=== PATIENT | female | born 1960 | race Caucasian/White ===

== ENCOUNTER 2019-06-09 06:46 | Emergency (ER) | payer BC, SELFPAY ==
[2019-06-09 06:51] VITALS: BP 159/90; PULSE 61; RESP 18; TEMP 36.4; O2SAT 99; BMI 27.9
[2019-06-09] MEDS: SODIUM CHLORIDE 0.9% 1,000 ML 1000 ML IV (07:15)
[2019-06-09 07:38] LABS: Add Manual Diff / Slide Review NO; Basophils Absolute Auto 0 /uL (0-100); Basophils Percent Auto 0.6 % (0-2); Eosinophils Absolute Auto 300 /uL (0-450); Eosinophils Percent Auto 4.3 % (2-4); Hematocrit 40.7 % (36-46); Hemoglobin 13.9 g/dL (12.0-16.0); Lymphocytes Absolute Auto 1500 /uL (1100-4500); Lymphocytes Percent Auto 22.5 % (25-40); Mean Corpuscular HGB Conc 34.1 % (30-36); Mean Corpuscular Hemoglobin 30.4 PG (26-34); Mean Corpuscular Volume 89.3 fL (80-100); Monocytes Absolute Auto 400 /uL (0-900); Monocytes Percent Auto 5.7 % (3-14); Neutrophils Absolute Auto 4300 /uL (1500-7000); Neutrophils Percent Auto 66.9 % (50-75); Platelet Count 294 X10^3/uL (150-400); Red Blood Cell Count 4.56 X10^6/uL (4.0-5.2); Red Cell Distribution Width 13.2 % (11.6-14.8); White Blood Cell Count 6.5 X10^3/uL (4.5-11.0)
[2019-06-09 07:47] LABS: Alanine Aminotransferase 32 IU/L (<35); Albumin 4.4 g/dL (3.5-5.0); Albumin Globulin Ratio 1.5 (1.0-2.8); Alkaline Phosphatase 144 U/L (38-126); Aspartate Aminotransferase 31 IU/L (14-36); Bilirubin Total 0.6 mg/dL (0.2-1.3); Blood Urea Nitrogen 14 mg/dL (7-17); Calcium 9.8 mg/dL (8.4-10.2); Carbon Dioxide 25 mmol/L (22-32); Chloride 106 mmol/L (98-107); Estimated Glomerular Filt Rate > 60.0 mL/min (>60); Glucose 90 mg/dL (80-110); HEMOLYSIS < 15 (0-50); Lipase 64 U/L (23-300); Potassium 3.9 mmol/L (3.4-5.1); Sodium 140 mmol/L (137-145); Total Protein 7.4 g/dL (6.3-8.2)
--- NOTE | 2019-06-09 08:08 | ED.ABDPAIN ---
HPI - Abdominal Pain General Chief Complaint: Abdominal Pain Stated Complaint: nausea/vomiting, left side pain Time Seen by Provider: 06/09/19 06:51 Source: patient Mode of arrival: Ambulatory Limitations: no limitations History of Present Illness HPI narrative: Patient comes emergency department complaining of left upper quadrant flank pain that started this morning. She states that when the pain gets bad, she starts get nauseated, too. Patient states she had a little coffee and Cheerios after waking up and that this seemed to make the pain worse. She denies sick contacts. She states she is otherwise healthy. No history of ulcers. No diarrhea, dysuria, fevers, cough, chest pain, shortness of breath, or right-sided pain. she states the pain comes in waves and that it is not too bad right now. She denies any history of kidney stones. No other complaints at this time. Related Data Home Medications Medication Instructions Recorded Confirmed [CALCIUM] PO QDAY #0 08/01/17 acetaminophen 325 mg PO Q4HP PRN #0 08/01/17 aspirin 325 mg PO PRN PRN #0 08/01/17 cholecalciferol (vitamin D3) PO QDAY #0 08/01/17 [Vitamin D3] multivitamin [Multiple Vitamins] 1 tab PO QDAY #0 08/01/17 Previous Rx's Medication Instructions Recorded tramadol 50 mg PO Q6HP PRN #14 tab 08/01/17 ondansetron 4 mg PO Q6H PRN #10 tab 06/09/19 Allergies Allergy/AdvReac Type Severity Reaction Status Date / Time Penicillins [PENICILLINS] Allergy Intermediate RASH Verified 06/09/19 08:08 amoxicillin [AMOXICILLIN] Allergy Mild rash Verified 06/09/19 08:08 Review of Systems Constitutional Constitutional: Denies chills, Denies fatigue, Denies fever(s), Denies frequent falls, Denies lethargy and Denies weakness Eyes Eyes: Denies change in vision, Denies eye discharge, Denies irritation and Denies loss of vision ENT Ears, Nose, Mouth, and Throat: Denies change in voice, Denies dizziness, Denies neck pain, Denies sore throat and Denies throat swelling Cardiovascular Cardiovascular: Denies chest pain, Denies irregular heart rhythm, Denies lightheadedness, Denies palpitations, Denies dyspnea, Denies dyspnea on exertion and Denies orthopnea Respiratory Respiratory: Denies cough, Denies dyspnea, Denies dyspnea on exertion and Denies wheezing Gastrointestinal Gastrointestinal: Reports abdominal pain, Denies change in bowel habits, Denies diarrhea, Reports nausea and Reports vomiting Genitourinary Genitourinary: Denies hematuria, Reports flank pain, Denies urinary incontinence and Denies urinary urgency Musculoskeletal Musculoskeletal: Denies back pain, Denies muscle weakness, Denies neck pain, Denies numbness and Denies tingling Integumentary/Breasts Skin/Breast: Denies pruritus, Denies erythema, Denies rash and Denies wounds Neurologic Neurologic: Denies behavioral changes, Denies confusion, Denies dizziness, Denies frequent falls, Denies loss of vision, Denies numbness, Denies tingling and Denies weakness Psychiatric Psychiatric: Denies anxiety, Denies behavioral changes, Denies confusion, Denies depression, Denies homicidal ideation and Denies suicidal ideation Endocrine Endocrine: Denies fatigue, Denies flushing and Denies palpitations Hematologic/Lymphatic Hematologic/Lymphatic: Denies easy bruising Allergic/Immunologic Allergic/Immunologic: Denies urticaria, Denies throat swelling and Denies wheezing Patient History Medical History Hepatitis (Acute) Surgical History H/O tubal ligation (Acute) Social History Smoking Status: Never smoker alcohol intake frequency: 0-2 drinks per day Substance Use Type: does not use Exam Initial Vital Signs Initial Vital Signs: Vital Signs Temperature 97.6 F 06/09/19 06:51 Pulse Rate 61 06/09/19 06:51 Respiratory Rate 18 06/09/19 06:51 Blood Pressure 159/90 H 06/09/19 06:51 Pulse Oximetry 99 06/09/19 06:51 Const General: cooperative and well developed Nutritional Appearance: well nourished Orientation: alert, awake, oriented x3 and not confused [facility] Head: normocephalic and atraumatic Ears: external ears normal Nose: external nose normal and No nasal discharge Face and sinus: face symmetric and No dry mucous membranes Mouth: oral mucosae normal and moist mucous membranes Teeth and gingiva: dentition normal Eyes General: appearance normal, both eyes and all related structures Eyelids: eyelids normal Conjunctivae: conjunctivae normal Sclera: sclerae normal Pupils: PERRL EOM: EOM intact bilaterally Neck Neck: normal visual inspection, trachea midline, No lymphadenopathy, No midline deformity and No JVD Lymphatic: No lymphedema Chest Chest: normal inspection of the chest Resp Effort & Inspection: normal respiratory effort, able to speak in complete sentences, no respiratory distress and no use of accessory muscles Auscultation: clear to auscultation bilaterally, no rales, no rhonchi and no wheezes Cardio Rate: regular rate Rhythm: regular rhythm Heart Sounds: no click, no gallops, no murmurs and no rubs Pulses: normal peripheral pulses GI Inspection: non-distended Palpation: soft, no hepatosplenomegaly, No guarding, No pulsatile mass and tender (Mild, left upper quadrant) Auscultation: normal bowel sounds Back/Spine/Pelvis Back: CVA tenderness left (Mild) Cervical Spine: cervical ROM normal and No pain with cervical ROM Thoracic/Lumbar Spine: thoracic and lumbar spine normal to inspection Skin General: no rashes or lesions noted, No jaundice and No petechiae Neuro General: alert, oriented x3, gait normal and no focal motor deficits Speech: speech normal Extrem General: full ROM, no clubbing, cyanosis or edema, no pedal edema and no calf tenderness Psych Appearance: well kempt Mental Status: mental status grossly normal Attitude: cooperative Thought Content: normal and suicidality Judgment: judgment good Course Course Course Narrative: Patient was given IV fluids in the emergency department. She declined analgesia or antiemetics initially, because she did not have significant symptoms in this regard at that time. Patient was worked up with labs, urinalysis, and CT KUB, all of which were unremarkable. I discussed this with the patient, who still was feeling better. I feel that most likely, the patient has a viral infection, which I have discussed with her will be self-limited. We have discussed home management of symptoms, as well as the usual indications for return. Orders Ordered: Discontinued Medications Sodium Chloride (Normal Saline 0.9%) 1,000 mls @ 1,000 mls/hr IV BOLUS ONE Stop: 06/09/19 07:50 Last Infusion: 06/09/19 08:25 Dose: 0 mls/hr Documented by: Admin: 06/09/19 07:15 Dose: 1,000 mls/hr Documented by: SCANAPO Vital Signs Vital signs: Vital Signs - 8 hr 06/09/19 06:51 Temperature 97.6 F Pulse Rate 61 Respiratory Rate 18 Blood Pressure 159/90 H Pulse Oximetry 99 MDM - Abdominal Pain Medical Records Attestation: I reviewed the patient's medical records. Lab Data Attestation: I reviewed the patient's lab results. Result diagrams: 06/09/19 07:20 06/09/19 07:20 Labs: Lab Results 06/09/19 06/09/19 06/09/19 Range/Units 07:20 07:20 09:23 WBC 6.5 (4.5-11.0) X10^3/uL RBC 4.56 (4.0-5.2) X10^6/uL Hgb 13.9 (12.0-16.0) g/dL Hct 40.7 (36-46) % MCV 89.3 (80-100) fL MCH 30.4 (26-34) PG MCHC 34.1 (30-36) % RDW 13.2 (11.6-14.8) % Plt Count 294 (150-400) X10^3/uL Neut % (Auto) 66.9 (50-75) % Lymph % (Auto) 22.5 L (25-40) % [place] % (Auto) 5.7 (3-14) % Eos % (Auto) 4.3 H (2-4) % Baso % (Auto) 0.6 (0-2) % Neut # (Auto) 4300 (4041-5407) /uL Lymph # (Auto) 1500 (3478-4335) /uL [place] # (Auto) 400 (0-900) /uL Eos # (Auto) 300 (0-450) /uL Baso # (Auto) 0 (0-100) /uL Sodium 140 (137-145) mmol/L Potassium 3.9 (3.4-5.1) mmol/L Chloride 106 (98-107) mmol/L Carbon Dioxide 25 (22-32) mmol/L BUN 14 (7-17) mg/dL Creatinine 0.70 (0.52-1.04) mg/dL Estimated GFR > 60.0 (>60) mL/min BUN/Creatinine Ratio 20.0 (6-22) Glucose 90 (80-110) mg/dL Calcium 9.8 (8.4-10.2) mg/dL Total Bilirubin 0.6 (0.2-1.3) mg/dL AST 31 (14-36) IU/L ALT 32 (<35) IU/L Alkaline Phosphatase 144 H (38-126) U/L Troponin I < 0.012 (0.01-0.034) ng/mL Total Protein 7.4 (6.3-8.2) g/dL Albumin 4.4 (3.5-5.0) g/dL Globulin 3.0 (1.7-4.1) g/dL Albumin/Globulin Ratio 1.5 (1.0-2.8) Lipase 64 (23-300) U/L Urine Color Yellow Urine Appearance Sl cloudy Urine pH 7.5 (4.5-8.0) Ur Specific [place] 1.010 (1.000-1.035) Urine Protein Negative (Negative) Urine Glucose (UA) Negative (Negative) g/dL Urine Ketones Negative (NEGATIVE) Urine Occult Blood Negative (Negative) Urine Nitrate Negative (Negative) Urine Bilirubin Negative (NEGATIVE) Urine Urobilinogen 0.2 (0.2) E.U./dL Ur Leukocyte Esterase Negative (NEGATIVE) Urine RBC None seen (0-5/HPF) Urine WBC 0-1/hpf (0-5/HPF) Ur Squamous Epith Cells 1-5 /hpf (0-5/HPF) Amorphous Sediment 3+ Urine Bacteria Many (>30) H (None) Ur Culture Indicated? Cult not indicated Imaging Data CT scan - abdomen: Radiologist's impression: PROCEDURE: CT KIDNEY URETER BLADDER (KUB) INDICATIONS: Left flank pain, nausea TECHNIQUE: Noncontrast 5 mm thick sections acquired from the diaphragms to the symphysis. 5 mm thick coronal and sagittal reformats were then performed. For radiation dose reduction, the following was used: automated exposure control, adjustment of mA and/or kV according to patient size. COMPARISON: [facility], , ABDOMEN LIMITED, 08/01/2017, 10:08. FINDINGS: Image quality: Excellent. Lung bases: There is mild dependent atelectasis. There is a focus of nodular pleural thickening along the right hemidiaphragm measuring up to 0.8 cm. Heart size is normal. There is a small inferior pericardial effusion. Urinary system: No kidney stones, hydronephrosis or perinephric fat stranding. Multiple bilateral renal cysts are demonstrated including large exophytic cysts measuring up to 5.3 cm on the right and 5.0 cm on the left. There are a few small foci of eccentric cyst wall calcifications in the left kidney. In addition, there are 2 small exophytic hyperdense foci extending posteriorly from the left kidney measuring up to 0.5 cm compatible with cortical calcifications. Both ureters appear non-dilated throughout their expected courses. Bladder wall thickness is normal; no calcified bladder stones. Other solid organs: Noncontrast evaluation of the liver demonstrates no focal hepatic lesions. The gallbladder is within normal limits without mass effect gallstones. Pancreas is normal in contours. Spleen is normal in size. No adrenal nodules. Peritoneum and bowel: Unenhanced bowel loops demonstrate normal wall thickness and caliber. The appendix is normal in appearance. There is colonic diverticulosis without acute diverticulitis. No free fluid or air. Nodes and vessels: No retroperitoneal or mesenteric adenopathy by size criteria. Aorta and inferior vena cava are normal in caliber. Abdominal wall: No ventral hernias. Pelvis: No free pelvic fluid. No inguinal hernias or adenopathy. Bones: No suspicious bony lesions. No vertebral body compression fractures. IMPRESSION: 1. No hydronephrosis or nephrolithiasis. 2. Multiple bilateral renal cysts including mildly complex cysts in the left kidney demonstrating eccentric wall calcifications. 3. 2 small hyperdense exophytic foci extending posteriorly from the left kidney suggestive of cortical calcifications. The findings are nonspecific and may reflect dystrophic calcifications or sequelae of hemorrhagic cysts. 4. Nodular thickening along the right hemidiaphragm. If patient is at high risk for malignancy, a followup CT may be performed in 12 months to demonstrate stability. 5. Small inferior pericardial effusion. 6. Mild colonic diverticulosis without acute diverticulitis. Dictated by: Sha Griffin M.D. on 06/09/2019 at 8:29 Approved by: Sha Griffin M.D. on 06/09/2019 at 8:38 Discharge Plan Departure Patient Disposition: Home Clinical Impression: Viral gastritis Discharge Date/Time: 06/09/19 10:30 Instructions: DI for Viral Gastroenteritis -- Adult, DI for Abdominal Pain-Adult Activity Restrictions/Additional Instructions: Your labs and urinalysis look good. Your CT scan shows no evidence of a kidney stone or findings that would contribute to your symptoms today. You do have a few cysts on your kidneys, but generally, these do not cause symptoms. You most likely have one of the many viral illnesses that are going around right now and causing nausea and vomiting. This can also cause spasm of the stomach itself, which can account for the pain you been having. Please take the nausea medication, as needed. Prescriptions: New ondansetron 4 mg tablet,disintegrating 4 mg PO Q6H PRN (Reason: nausea and vomiting) Qty: 10 RF: 0 No Action acetaminophen 325 MG tablet 325 mg PO Q4HP PRNQty: 0 RF: 0 aspirin 325 MG tablet 325 mg PO PRN PRNQty: 0 RF: 0 multivitamin [Multiple Vitamins] 1 EACH tablet 1 tab PO QDAY Qty: 0 RF: 0 cholecalciferol (vitamin D3) [Vitamin D3] 2,000 unit capsule PO QDAY Qty: 0 RF: 0 [CALCIUM] PO QDAY Qty: 0 RF: 0 tramadol 50 MG tablet 50 mg PO Q6HP PRNQty: 14 RF: 0 Referrals: [facility] [Provider Group]
[2019-06-09 08:12] LABS: Troponin I < 0.012 ng/mL (0.01-0.034)
--- NOTE | 2019-06-09 08:18 | DI.CT.S_ITS ---
PROCEDURE: CT KIDNEY URETER BLADDER (KUB) INDICATIONS: Left flank pain, nausea TECHNIQUE: Noncontrast 5 mm thick sections acquired from the diaphragms to the symphysis. 5 mm thick coronal and sagittal reformats were then performed. For radiation dose reduction, the following was used: automated exposure control, adjustment of mA and/or kV according to patient size. COMPARISON: [facility], , ABDOMEN LIMITED, 08/01/2017, 10:08. FINDINGS: Image quality: Excellent. Lung bases: There is mild dependent atelectasis. There is a focus of nodular pleural thickening along the right hemidiaphragm measuring up to 0.8 cm. Heart size is normal. There is a small inferior pericardial effusion. Urinary system: No kidney stones, hydronephrosis or perinephric fat stranding. Multiple bilateral renal cysts are demonstrated including large exophytic cysts measuring up to 5.3 cm on the right and 5.0 cm on the left. There are a few small foci of eccentric cyst wall calcifications in the left kidney. In addition, there are 2 small exophytic hyperdense foci extending posteriorly from the left kidney measuring up to 0.5 cm compatible with cortical calcifications. Both ureters appear non-dilated throughout their expected courses. Bladder wall thickness is normal; no calcified bladder stones. Other solid organs: Noncontrast evaluation of the liver demonstrates no focal hepatic lesions. The gallbladder is within normal limits without mass effect gallstones. Pancreas is normal in contours. Spleen is normal in size. No adrenal nodules. Peritoneum and bowel: Unenhanced bowel loops demonstrate normal wall thickness and caliber. The appendix is normal in appearance. There is colonic diverticulosis without acute diverticulitis. No free fluid or air. Nodes and vessels: No retroperitoneal or mesenteric adenopathy by size criteria. Aorta and inferior vena cava are normal in caliber. Abdominal wall: No ventral hernias. Pelvis: No free pelvic fluid. No inguinal hernias or adenopathy. Bones: No suspicious bony lesions. No vertebral body compression fractures. IMPRESSION: 1. No hydronephrosis or nephrolithiasis. 2. Multiple bilateral renal cysts including mildly complex cysts in the left kidney demonstrating eccentric wall calcifications. 3. 2 small hyperdense exophytic foci extending posteriorly from the left kidney suggestive of cortical calcifications. The findings are nonspecific and may reflect dystrophic calcifications or sequelae of hemorrhagic cysts. 4. Nodular thickening along the right hemidiaphragm. If patient is at high risk for malignancy, a followup CT may be performed in 12 months to demonstrate stability. 5. Small inferior pericardial effusion. 6. Mild colonic diverticulosis without acute diverticulitis. Dictated by: Sha Griffin M.D. on 06/09/2019 at 8:29 Approved by: Sha Griffin M.D. on 06/09/2019 at 8:38
[2019-06-09 09:26] VITALS: BP 149/79; PULSE 57; RESP 14; O2SAT 100
[2019-06-09 09:26] LABS: RBC Urine None Seen (0-5/HPF)
[2019-06-09 09:28] LABS: Appearance Urine UA SL CLOUDY; Bilirubin Urine UA NEGATIVE (NEGATIVE); Color Urine UA YELLOW; Glucose Urine UA NEGATIVE (Negative); Ketones Urine UA NEGATIVE (NEGATIVE); Leukocyte Esterase Urine UA NEGATIVE (NEGATIVE); Nitrite Urine UA NEGATIVE (Negative); Occult Blood Urine UA NEGATIVE (Negative); Protein Urine UA NEGATIVE (Negative); Urobilinogen Urine UA 0.2 E.U./dL (0.2)
[2019-06-09 09:44] LABS: pH Urine UA 7.5 (4.5-8.0)
[2019-06-09 09:45] LABS: Amorphous Sediment Urine 3+; Bacteria Urine Many (>30); Culture Indicated Urine Cult Not Indicated; Squamous Epithelial Cell Urine 1-5 /HPF (0-5/HPF); WBC Urine 0-1/HPF (0-5/HPF)
== END 2019-06-09 10:30 | disposition home or self-care (01) ==
PROVIDERS: Emergency Medicine; Emergency Provider Emergency Medicine
DX: K29.70 Gastritis, unspecified, without bleeding (principal)
CPT/HCPCS: 36415; 74176; 80053; 81001; 83690; 84484; 85025; 93005; 96360; 99283; 99285

== ENCOUNTER 2020-10-13 16:50 | Emergency (ER) | payer OTHER, SELFPAY ==
[2020-10-13 16:59] VITALS: BP 180/81; PULSE 62; RESP 18; TEMP 36.4; O2SAT 100
[2020-10-13] MEDS: ONDANSETRON 4 MG ODT PO (17:45)
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
--- NOTE | 2020-10-13 18:55 | PC.NURSE ---
pt complaining of nausea.
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
[2020-10-13] MEDS: ONDANSETRON 4 MG ODT PREPACK 1 BOTTLE MISC (20:58)
[2020-10-13 21:05] VITALS: BP 132/84; PULSE 47; RESP 22; O2SAT 97
--- NOTE | 2020-10-14 12:21 | PC.NURSE ---
pt called stating her work note was not in the packet. discussed with dr bradshaw. 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
== END 2020-10-13 21:04 | disposition home or self-care (01) ==
PROVIDERS: Emergency Provider Emergency Medicine
DX: S06.0X0A Concussion without loss of consciousness, initial encounter (principal); V49.40XA Driver injured in collision with unspecified motor vehicles in traffic accident, initial encounter
CPT/HCPCS: 70450; 72125; 99283; 99284

== ENCOUNTER 2021-02-02 15:46 | Emergency (ER) | payer OTHER, SELFPAY ==
[2021-02-02] VITALS (9 sets, daily range): BP systolic 149–190; BP diastolic 76–91; PULSE 57–77; RESP 14–16; TEMP 36.8; O2SAT 96–100; BMI 24.5
[2021-02-02 16:21] LABS: Add Manual Diff / Slide Review NO; Basophils Absolute Auto 100 /uL (0-100); Basophils Percent Auto 1.4 % (0-2); Eosinophils Absolute Auto 200 /uL (0-450); Eosinophils Percent Auto 3.4 % (2-4); Hematocrit 39.7 % (36-46); Hemoglobin 13.2 g/dL (12.0-16.0); Lymphocytes Absolute Auto 1500 /uL (1100-4500); Lymphocytes Percent Auto 25.6 % (25-40); Mean Corpuscular HGB Conc 33.3 % (30-36); Mean Corpuscular Volume 90.1 fL (80-100); Monocytes Absolute Auto 400 /uL (0-900); Monocytes Percent Auto 5.9 % (3-14); Neutrophils Absolute Auto 3800 /uL (1500-7000); Neutrophils Percent Auto 63.7 % (50-75); Platelet Count 227 X10^3/uL (150-400); Red Blood Cell Count 4.41 X10^6/uL (4.0-5.2); Red Cell Distribution Width 13.7 % (11.6-14.8); White Blood Cell Count 5.9 X10^3/uL (4.5-11.0)
[2021-02-02 16:31] LABS: Alanine Aminotransferase 39 IU/L (<35); Albumin 4.2 g/dL (3.5-5.0); Albumin Globulin Ratio 1.5 (1.0-2.8); Alkaline Phosphatase 93 U/L (38-126); Aspartate Aminotransferase 36 IU/L (14-36); BUN Creatinine Ratio 17.1 (6-22); Bilirubin Total 0.4 mg/dL (0.2-1.3); Blood Urea Nitrogen 14 mg/dL (7-17); Calcium 9.5 mg/dL (8.4-10.2); Carbon Dioxide 28 mmol/L (22-32); Chloride 104 mmol/L (98-107); Estimated Glomerular Filt Rate > 60.0 mL/min (>60); Globulin 2.8 g/dL (1.7-4.1); Glucose 104 mg/dL (80-110); HEMOLYSIS < 15 (0-50); Lipase 70 U/L (23-300); Sodium 138 mmol/L (137-145)
--- NOTE | 2021-02-02 16:39 | PC.NURSE ---
Denies UTI symptoms
[2021-02-02] MEDS: ONDANSETRON 4 MG/2 ML INJ IV (16:43)
[2021-02-02] MEDS: KETOROLAC 30 MG/ML VIAL IV (16:43)
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
--- NOTE | 2021-02-02 18:25 | DI.CT.S_ITS ---
PROCEDURE: CT KIDNEY URETER BLADDER (KUB) INDICATIONS: right flank/side pain, sudden onset, n/v TECHNIQUE: Axial sections were acquired from the lung bases to the pubic symphysis. Coronal and sagittal reformats were performed. For radiation dose reduction, the following was used: automated exposure control, adjustment of mA and/or kV according to patient size. COMPARISON:Formerly [facility], CT, CT KIDNEY URETER BLADDER (KUB), 06/09/2019, 8:12. FINDINGS: Image quality: Excellent. Lung bases: Unremarkable. Heart: Small pericardial effusion, chronic. Stable heart size. URINARY: Right Kidney: No stones or hydronephrosis. Several exophytic cysts are present. No perinephric inflammation. Right Ureter: No hydroureter. Left Kidney: No stones or hydronephrosis. Tiny chronic hyperdense cyst along the inferior pole. Several exophytic cysts are present elsewhere. There is trace hyperdensity along one of the superior pole cysts, chronic. Left Ureter: No hydroureter. Bladder: Normal wall thickness. No stones. ABDOMEN: Liver: Unremarkable. Gallbladder: Unremarkable. Biliary ducts: Unremarkable. Pancreas: Unremarkable. Spleen: Unremarkable. Adrenal Glands: Unremarkable. Stomach and Bowel: Stomach, small bowel loops, and colon are unremarkable. Normal appendix is seen. Peritoneum: No abnormal intraperitoneal fluid. No free air. Ventral Wall: No hernia. Abdominal Nodes: No enlarged retroperitoneal or mesenteric lymph nodes. Vessels: Aorta and inferior vena cava are normal in size. PELVIS: Pelvic Organs: Unremarkable. Pelvic Nodes: Unremarkable. Miscellaneous: No inguinal hernias are seen. Bones: Superior endplate scalloping of multiple lower thoracic and lumbar vertebral bodies, most extensive at L5, similar compared to prior. IMPRESSION: 1. No evidence of urinary stones or obstructive uropathy. 2. Several exophytic renal cysts bilaterally. 3. Normal appendix. 4. Multiple chronic appearing osteoporotic compression fractures. Dictated by: Yamileth Alston M.D. on 02/02/2021 at 18:59 Approved by: Yamileth Alston M.D. on 02/02/2021 at 19:14
== END 2021-02-02 20:01 | disposition home or self-care (01) ==
PROVIDERS: Emergency Medicine; Emergency Provider Emergency Medicine; PCP Family Medicine
DX: M48.56XA Collapsed vertebra, not elsewhere classified, lumbar region, initial encounter for fracture (principal); R11.2 Nausea with vomiting, unspecified; R42 Dizziness and giddiness
CPT/HCPCS: 74176; 80053; 81003; 83690; 85025; 96374; 96375; 99284; J1885; J2405

== ENCOUNTER 2021-07-20 10:53 | Emergency (ER) | payer OTHER, SELFPAY ==
[2021-07-20 11:14] VITALS: BP 188/105; PULSE 65; RESP 16; TEMP 35.9; O2SAT 99; BMI 25.7
--- NOTE | 2021-07-20 11:17 | DI.RAD.S_ITS ---
PROCEDURE: XR CHEST 1V INDICATIONS: chest pain TECHNIQUE: One view of the chest was acquired. COMPARISON: None. FINDINGS: Surgical changes and devices: None. Lungs and pleura: Lungs are clear. No pleural effusions or pneumothorax. Mediastinum: Mediastinal contours appear normal. Heart size is normal. Bones and chest wall: No suspicious bony lesions. Overlying soft tissues appear unremarkable. IMPRESSION: No acute cardiopulmonary pathology. Dictated by: Warren Garcia M.D. on 07/20/2021 at 11:45 Approved by: Warren Garcia M.D. on 07/20/2021 at 11:45
--- NOTE | 2021-07-20 12:03 | ED.CHESTPAIN ---
HPI - Chest Pain General Chief Complaint: Chest Pain Stated Complaint: Heart palps Time Seen by Provider: 07/20/21 12:03 Source: patient Mode of arrival: Ambulatory Limitations: no limitations Related Data Previous Rx's Medication Instructions Recorded meloxicam 7.5 mg tablet (Mobic) 7.5 mg PO BID PRN #14 tab 02/02/21 ondansetron 4 mg disintegrating 4 mg PO Q6H PRN #5 tab 02/02/21 tablet Allergies Allergy/AdvReac Type Severity Reaction Status Date / Time Penicillins [PENICILLINS] Allergy Intermediate RASH Verified 02/02/21 16:34 amoxicillin [AMOXICILLIN] Allergy Mild rash Verified 02/02/21 16:34 Patient History Medical History Hepatitis Surgical History H/O tubal ligation Social History Smoking Status: Never smoker Smoking Status: Never smoker alcohol intake frequency: 0-2 drinks per day Substance Use Type: does not use Exam Initial Vital Signs Initial Vital Signs: Vital Signs Temperature 96.6 F L 07/20/21 11:14 Pulse Rate 65 07/20/21 11:14 Respiratory Rate 16 07/20/21 11:14 Blood Pressure 188/105 H 07/20/21 11:14 Pulse Oximetry 99 07/20/21 11:14 Course Orders Ordered: ED Orders 07/20/21 11:17 XR chest 1V Stat Complete Blood Count AUTO DIFF Stat Comprehensive Metabolic Panel Stat Lipase Stat Magnesium Stat Troponin & CK Cardiac Panel Stat 07/20/21 11:22 EKG-12 Lead Stat Vital Signs Vital signs: Vital Signs - 8 hr 07/20/21 11:14 Temperature 96.6 F L Pulse Rate 65 Respiratory Rate 16 Blood Pressure 188/105 H Pulse Oximetry 99 MDM - Chest Pain Lab Data Result diagrams: 07/20/21 12:03 07/20/21 12:03 Labs: Lab Results 07/20/21 07/20/21 07/20/21 Range/Units 12:03 12:03 12:05 WBC 7.4 (4.5-11.0) X10^3/uL RBC 4.99 (4.0-5.2) X10^6/uL Hgb 14.8 (12.0-16.0) g/dL Hct 43.9 (36-46) % MCV 87.9 (80-100) fL MCH 29.6 (26-34) PG MCHC 33.7 (30-36) % RDW 13.4 (11.6-14.8) % Plt Count 317 (150-400) X10^3/uL Neut % (Auto) 71.8 (50-75) % Lymph % (Auto) 20.5 L (25-40) % [place] % (Auto) 4.5 (3-14) % Eos % (Auto) 2.4 (2-4) % Baso % (Auto) 0.8 (0-2) % Neut # (Auto) 5300 (9570-9573) /uL Lymph # (Auto) 1500 (5409-4415) /uL [place] # (Auto) 300 (0-900) /uL Eos # (Auto) 200 (0-450) /uL Baso # (Auto) 100 (0-100) /uL Sodium 137 (137-145) mmol/L Potassium 3.8 (3.4-5.1) mmol/L Chloride 100 (98-107) mmol/L Carbon Dioxide 32 (22-32) mmol/L BUN 14 (7-17) mg/dL Creatinine 0.83 (0.52-1.04) mg/dL Estimated GFR > 60.0 (>60) mL/min BUN/Creatinine Ratio 16.9 (6-22) Glucose 94 (80-110) mg/dL Calcium 10.0 (8.4-10.2) mg/dL Magnesium 2.0 (1.6-2.3) mg/dL Total Bilirubin 0.7 (0.2-1.3) mg/dL AST 37 H (14-36) IU/L ALT 41 H (<35) IU/L Alkaline Phosphatase 147 H (38-126) U/L Total Creatine Kinase 178 H (30-135) U/L CK-MB (CK-2) 1.87 (<2.37) ng/mL CK-MB (CK-2) Rel Index 1.1 L (1.5-5.0) % Troponin I < 0.012 (0.01-0.034) ng/mL Total Protein 8.8 H (6.3-8.2) g/dL Albumin 4.9 (3.5-5.0) g/dL Globulin 3.9 (1.7-4.1) g/dL Albumin/Globulin Ratio 1.3 (1.0-2.8) Lipase 55 (23-300) U/L TSH 1.82 (0.47-4.68) uIU/mL SARS-CoV-2 (PCR) (Negative) 07/20/21 Range/Units 14:20 WBC (4.5-11.0) X10^3/uL RBC (4.0-5.2) X10^6/uL Hgb (12.0-16.0) g/dL Hct (36-46) % MCV (80-100) fL MCH (26-34) PG MCHC (30-36) % RDW (11.6-14.8) % Plt Count (150-400) X10^3/uL Neut % (Auto) (50-75) % Lymph % (Auto) (25-40) % [place] % (Auto) (3-14) % Eos % (Auto) (2-4) % Baso % (Auto) (0-2) % Neut # (Auto) (7809-4830) /uL Lymph # (Auto) (7265-4665) /uL [place] # (Auto) (0-900) /uL Eos # (Auto) (0-450) /uL Baso # (Auto) (0-100) /uL Sodium (137-145) mmol/L Potassium (3.4-5.1) mmol/L Chloride (98-107) mmol/L Carbon Dioxide (22-32) mmol/L BUN (7-17) mg/dL Creatinine (0.52-1.04) mg/dL Estimated GFR (>60) mL/min BUN/Creatinine Ratio (6-22) Glucose (80-110) mg/dL Calcium (8.4-10.2) mg/dL Magnesium (1.6-2.3) mg/dL Total Bilirubin (0.2-1.3) mg/dL AST (14-36) IU/L ALT (<35) IU/L Alkaline Phosphatase (38-126) U/L Total Creatine Kinase (30-135) U/L CK-MB (CK-2) (<2.37) ng/mL CK-MB (CK-2) Rel Index (1.5-5.0) % Troponin I (0.01-0.034) ng/mL Total Protein (6.3-8.2) g/dL Albumin (3.5-5.0) g/dL Globulin (1.7-4.1) g/dL Albumin/Globulin Ratio (1.0-2.8) Lipase (23-300) U/L TSH (0.47-4.68) uIU/mL SARS-CoV-2 (PCR) Negative (Negative) Discharge Plan Departure Patient Disposition: Home Clinical Impression: Gallbladder polyp, Renal cyst, Epigastric abdominal pain Instructions: DI for Gastroesophageal Reflux Disease (GERD), DI for Epigastric Pain Activity Restrictions/Additional Instructions: *You have been diagnosed with epigastric pain which is unclear in etiology. Your liver enzymes are elevated but they are stable compared with prior levels. This does not appear to be cardiac in nature. Your workup is reassuring that this is not a dangerous cause for your symptoms. It most certainly could be a viral syndrome, and if so, please get enough rest, use Tylenol as needed for your symptoms, stay hydrated, and hope that your COVID test is negative. Thank you for trusting us with your care, I have sent your chart over to Dr. Ricks so she can follow up with you. Please make an appointment with her for follow-up in the next week. *What to do: *Please continue to take your regular medications as directed. [ ] New medication prescriptions sent to your pharmacy: [ ] [ ] New medication written as a paper prescription [ x] No new medications given *Please follow up with your primary care provider in 2-3 days, call for an appointment. Let them know you were seen in the Emergency Department and that we ask that you be seen in follow up. We will electronically transmit a record of today's note if your PCP is in our system *If you do not have a primary care provider please contact the [facility] Resource line at [phone]. They will ask some questions about your medical history and help get you set up with a doctor in the community. *Return to Emergency Department if you should have any new, worsening or concerning symptoms, such as [fever greater than 101F, chills, worsening pain, persistent vomiting or other bothersome symptoms] Prescriptions: No Action meloxicam [Mobic] 7.5 mg tablet 7.5 mg PO BID PRN (Reason: pain) Qty: 14 0RF ondansetron 4 mg tablet,disintegrating 4 mg PO Q6H PRN (Reason: nausea and vomiting) Qty: 5 0RF Referrals: Bridgette Ricks DO [Primary Care Provider] - Tremayne Bolton MD [Physician] - 10-14 days (for gallbladder polyp, if worsening)
--- NOTE | 2021-07-20 12:13 | ED.CHESTPAIN ---
HPI - Chest Pain <JACOB Harris - Last Filed: 07/20/21 20:15> General Chief Complaint: Chest Pain Stated Complaint: Heart palps Time Seen by Provider: 07/20/21 12:03 Source: patient Mode of arrival: Ambulatory Limitations: no limitations History of Present Illness HPI narrative: 61-year-old female presents to the emergency department for abrupt onset of epigastric pain starting at 3:40 a.m. this morning. 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 she became so nauseated she did not continue working and came to the emergency department after going to the [facility] walk-in clinic and having a EKG which was read normal completed. They recommended she come to the emergency department for follow-up. Patient reports that her pain has been accompanied by palpitations and a feeling of ?tightness ?and ?fuzziness? in her chest. She reports that her pain is relieved by belching, she denies any recent illness, fever, shortness of breath, difficulty breathing, rhinorrhea, diarrhea or vomiting. Patient reports that her brother and her sister were diagnosed with thyroid cancer. Patient reports that her family physician is Dr. Ricks at [facility] and she normally has yearly labs completed without any medical history that she knows of. Patient does not take any daily medications, she denies any recent greasy food and reports that she is back on weight watchers for the new year. She also reports that she has episodes palpitations in the past 6 months where she feels like her heart rate is abnormal but not racing. She denies feeling faint or dizzy during these episodes or ever having syncope. Patient reports that she still has all of her solid organs and has never had this type of epigastric pain before. Related Data Previous Rx's Medication Instructions Recorded meloxicam 7.5 mg tablet (Mobic) 7.5 mg PO BID PRN #14 tab 02/02/21 ondansetron 4 mg disintegrating 4 mg PO Q6H PRN #5 tab 02/02/21 tablet Allergies Allergy/AdvReac Type Severity Reaction Status Date / Time Penicillins [PENICILLINS] Allergy Intermediate RASH Verified 02/02/21 16:34 amoxicillin [AMOXICILLIN] Allergy Mild rash Verified 02/02/21 16:34 Review of Systems <JACOB Harris - Last Filed: 07/20/21 20:15> Review of Systems Narrative: General: denies fever, chills Head/Neck: denies headache, neck pain Eyes: denies visual changes, eye pain Cardio: denies chest pain, endorses feeling palpitations this morning but no longer, endorses having epigastric pain relieved by belching Respiratory: denies shortness of breath, cough GI: Endorses upper abdominal pain and nausea, denies vomiting, or diarrhea : denies dysuria, hematuria MSK: denies joint pain, muscle weakness Skin: denies rash, itching Neuro: denies numbness, tingling Patient History <JACOB Harris - Last Filed: 07/20/21 20:15> Medical History Hepatitis Surgical History H/O tubal ligation Social History Smoking Status: Never smoker Smoking Status: Never smoker alcohol intake frequency: 0-2 drinks per day Substance Use Type: does not use Exam <JACOB Harris - Last Filed: 07/20/21 20:15> Narrative Exam Narrative: Independently reviewed vitals signs and nursing notes. General: Awake, alert, nontoxic, no cardiorespiratory distress Head/Neck: Atraumatic, neck full range of motion Eyes: EOMI, conjunctiva normal Nose: nares patent, no rhinorrhea Mouth/Throat: moist mucus membranes, posterior pharynx normal, no oral lesions Cardio: Regular rate and rhythm, no peripheral edema, warm extremities, pulses 2+ in bilateral extremities, hypertension Respiratory: respirations unlabored without wheezing, stridor, or rales. No retractions. GI: Abdomen soft, nontender to palpation, no masses, she endorses that her pain is primarily epigastric underneath her xiphoid process MSK: Moves all extremities, neurovascularly intact Skin: Normal capillary refill, no rash Neuro: Normal speech and cognition, normal gait, symmetrical face movements Initial Vital Signs Initial Vital Signs: Vital Signs Temperature 96.6 F L 07/20/21 11:14 Pulse Rate 65 07/20/21 11:14 Respiratory Rate 16 07/20/21 11:14 Blood Pressure 188/105 H 07/20/21 11:14 Pulse Oximetry 99 07/20/21 11:14 <Bradley Gaviria DO - Last Filed: 07/27/21 19:22> Initial Vital Signs Initial Vital Signs: Vital Signs Temperature 96.6 F L 07/20/21 11:14 Pulse Rate 65 07/20/21 11:14 Respiratory Rate 16 07/20/21 11:14 Blood Pressure 188/105 H 07/20/21 11:14 Pulse Oximetry 99 07/20/21 11:14 Scores <HALEY HarrisP - Last Filed: 07/20/21 20:15> HEART Score Heart Score history: Slightly Suspicious Heart Score EKG: Normal Heart Score Age: 45-64 years old Heart Score risk factors: No known risk factors Heart Score troponin: < or = to normal limit Heart Score Total: 1 Jb' Criteria for PE Clinical signs and symptoms of DVT: No PE is #1 Dx or equally likely: No Heart rate > 100: No Immobilization at least 3 days or surg in previous 4 weeks: No History of PE or DVT: No Hemoptysis: No Malignancy w/Treatment within 6 months or palliative: No Wells' PE Score total: 0 <Bradley Gaviria DO - Last Filed: 07/27/21 19:22> HEART Score Heart Score Total: 1 Wells' Criteria for PE Wells' PE Score total: 0 Course <HALEY HarrisP - Last Filed: 07/20/21 20:15> Orders Ordered: ED Orders 07/20/21 11:17 XR chest 1V Stat 07/20/21 11:22 EKG-12 Lead Stat 07/20/21 12:03 Complete Blood Count AUTO DIFF Stat Comprehensive Metabolic Panel Stat Lipase Stat Magnesium Stat Troponin & CK Cardiac Panel Stat 07/20/21 12:05 TSH [Thyroid Stimulating Hormone] Stat 07/20/21 12:29 US abdomen limited Stat 07/20/21 14:20 COVID19 -Nasal swab/Pre-Proc Stat Vital Signs Vital signs: Vital Signs - 8 hr 07/20/21 12:44 07/20/21 13:00 07/20/21 13:30 Pulse Rate 61 63 67 Respiratory Rate 17 19 19 Blood Pressure 196/97 H 179/98 H Pulse Oximetry 100 99 98 07/20/21 14:00 Pulse Rate 70 Respiratory Rate 12 Blood Pressure 162/88 H Pulse Oximetry 98 <Bradley Gaviria DO - Last Filed: 07/27/21 19:22> Orders Ordered: ED Orders 07/20/21 11:17 XR chest 1V Stat 07/20/21 11:22 EKG-12 Lead Stat 07/20/21 12:03 Complete Blood Count AUTO DIFF Stat Comprehensive Metabolic Panel Stat Lipase Stat Magnesium Stat Troponin & CK Cardiac Panel Stat 07/20/21 12:05 TSH [Thyroid Stimulating Hormone] Stat 07/20/21 12:29 US abdomen limited Stat 07/20/21 14:20 COVID19 -Nasal swab/Pre-Proc Stat Vital Signs Vital signs: Vital Signs - 8 hr 07/20/21 12:44 07/20/21 13:00 07/20/21 13:30 Pulse Rate 61 63 67 Respiratory Rate 17 19 19 Blood Pressure 196/97 H 179/98 H Pulse Oximetry 100 99 98 07/20/21 14:00 Pulse Rate 70 Respiratory Rate 12 Blood Pressure 162/88 H Pulse Oximetry 98 MDM - Chest Pain <JACOB Harris - Last Filed: 07/20/21 20:15> Lab Data Result diagrams: 07/20/21 12:03 07/20/21 12:03 Labs: Lab Results 07/20/21 07/20/21 07/20/21 Range/Units 12:03 12:03 12:05 WBC 7.4 (4.5-11.0) X10^3/uL RBC 4.99 (4.0-5.2) X10^6/uL Hgb 14.8 (12.0-16.0) g/dL Hct 43.9 (36-46) % MCV 87.9 (80-100) fL MCH 29.6 (26-34) PG MCHC 33.7 (30-36) % RDW 13.4 (11.6-14.8) % Plt Count 317 (150-400) X10^3/uL Neut % (Auto) 71.8 (50-75) % Lymph % (Auto) 20.5 L (25-40) % Cooper % (Auto) 4.5 (3-14) % Eos % (Auto) 2.4 (2-4) % Baso % (Auto) 0.8 (0-2) % Neut # (Auto) 5300 (5199-4863) /uL Lymph # (Auto) 1500 (9163-2619) /uL Cooper # (Auto) 300 (0-900) /uL Eos # (Auto) 200 (0-450) /uL Baso # (Auto) 100 (0-100) /uL Sodium 137 (137-145) mmol/L Potassium 3.8 (3.4-5.1) mmol/L Chloride 100 (98-107) mmol/L Carbon Dioxide 32 (22-32) mmol/L BUN 14 (7-17) mg/dL Creatinine 0.83 (0.52-1.04) mg/dL Estimated GFR > 60.0 (>60) mL/min BUN/Creatinine Ratio 16.9 (6-22) Glucose 94 (80-110) mg/dL Calcium 10.0 (8.4-10.2) mg/dL Magnesium 2.0 (1.6-2.3) mg/dL Total Bilirubin 0.7 (0.2-1.3) mg/dL AST 37 H (14-36) IU/L ALT 41 H (<35) IU/L Alkaline Phosphatase 147 H (38-126) U/L Total Creatine Kinase 178 H (30-135) U/L CK-MB (CK-2) 1.87 (<2.37) ng/mL CK-MB (CK-2) Rel Index 1.1 L (1.5-5.0) % Troponin I < 0.012 (0.01-0.034) ng/mL Total Protein 8.8 H (6.3-8.2) g/dL Albumin 4.9 (3.5-5.0) g/dL Globulin 3.9 (1.7-4.1) g/dL Albumin/Globulin Ratio 1.3 (1.0-2.8) Lipase 55 (23-300) U/L TSH 1.82 (0.47-4.68) uIU/mL SARS-CoV-2 (PCR) (Negative) 07/20/21 Range/Units 14:20 WBC (4.5-11.0) X10^3/uL RBC (4.0-5.2) X10^6/uL Hgb (12.0-16.0) g/dL Hct (36-46) % MCV (80-100) fL MCH (26-34) PG MCHC (30-36) % RDW (11.6-14.8) % Plt Count (150-400) X10^3/uL Neut % (Auto) (50-75) % Lymph % (Auto) (25-40) % Cooper % (Auto) (3-14) % Eos % (Auto) (2-4) % Baso % (Auto) (0-2) % Neut # (Auto) (5765-8391) /uL Lymph # (Auto) (7705-8719) /uL Cooper # (Auto) (0-900) /uL Eos # (Auto) (0-450) /uL Baso # (Auto) (0-100) /uL Sodium (137-145) mmol/L Potassium (3.4-5.1) mmol/L Chloride (98-107) mmol/L Carbon Dioxide (22-32) mmol/L BUN (7-17) mg/dL Creatinine (0.52-1.04) mg/dL Estimated GFR (>60) mL/min BUN/Creatinine Ratio (6-22) Glucose (80-110) mg/dL Calcium (8.4-10.2) mg/dL Magnesium (1.6-2.3) mg/dL Total Bilirubin (0.2-1.3) mg/dL AST (14-36) IU/L ALT (<35) IU/L Alkaline Phosphatase (38-126) U/L Total Creatine Kinase (30-135) U/L CK-MB (CK-2) (<2.37) ng/mL CK-MB (CK-2) Rel Index (1.5-5.0) % Troponin I (0.01-0.034) ng/mL Total Protein (6.3-8.2) g/dL Albumin (3.5-5.0) g/dL Globulin (1.7-4.1) g/dL Albumin/Globulin Ratio (1.0-2.8) Lipase (23-300) U/L TSH (0.47-4.68) uIU/mL SARS-CoV-2 (PCR) Negative (Negative) Imaging Data Chest x-ray: Radiologist's Impression: PROCEDURE:? XR CHEST 1V ? INDICATIONS:? chest pain ? TECHNIQUE:? One view of the chest was acquired.? ? COMPARISON:? None. ? FINDINGS:? ? Surgical changes and devices:? None.? ? Lungs and pleura:? Lungs are clear.? No pleural effusions or pneumothorax.? ? Mediastinum:? Mediastinal contours appear normal.? Heart size is normal.? ? Bones and chest wall:? No suspicious bony lesions.? Overlying soft tissues appear unremarkable.? ? IMPRESSION:? No acute cardiopulmonary pathology. ? ? Dictated by: Warren Garcia M.D. on 07/20/2021 at 11:45 ? ? Approved by: Warren Garcia M.D. on 07/20/2021 at 11:45 ? US - abdomen: Radiologist's Impression: PROCEDURE:? US ABDOMEN LIMITED ? INDICATIONS:? EPIGASTRIC PAIN AND NAUSEA. PAIN RELIEVED WITH BELCHING. ? TECHNIQUE:? Real-time scanning was performed of the abdominal and retroperitoneal organs, with image documentation.? ? COMPARISON:? [facility], , ABDOMEN LIMITED, 08/01/2017, 10:08. ? FINDINGS:? ? Liver:? Liver is normal in size and homogeneous in echotexture.? ? Gallbladder:? Sonolucent without evidence cholelithiasis, gallbladder wall thickening or pericholecystic fluid.? No sonographic Luu sign.? Small gallbladder polyp measures 4 mm? ? Biliary ducts:? Intrahepatic bile ducts are non-dilated.? Extrahepatic bile duct caliber measures 6.6 mm.? Normal is 6-7 mm or less in diameter, or 10 mm or less post-cholecystectomy.? ? Right kidney:? Multiple right renal simple cysts.? Largest measures 12.1 x 6.8 x 6.7 cm.? Right renal echotexture, size and cortical thickness within normal limits.? No hydronephrosis. ? IMPRESSION:? ? 1. Small gallbladder polyp measures less than 4 mm. 2. Simple right renal cysts measure up to 12 cm ? ECG Data Interpretation: EKG independently reviewed by myself and Dr. Gaviria which reveals sinus bradycardia at [53] bpm with regular axis and intervals. No STEMI, ST segment changes, arrhythmia, or acute ischemic changes. MDM Narrative Medical decision making narrative: Female presents to the emergency department for epigastric pain and nausea which started this morning at 3:40 a.m.. Patient's history, exam, and workup are all reassuring that there is no evidence of emergent causes for her symptoms. Her TSH is in normal range, EKG shows sinus bradycardia without ST changes, normal axis, normal QRS without arrhythmia. She is without evidence of volume overload, I doubt heart failure, EKG without active ischemia, troponin was negative I doubt NSTEMI, presentation is not consistent with acute pulmonary embolism, Wells is low risk, pneumothorax not visualized on chest x-ray, x-ray without any acute cardiopulmonary changes, heart score is 1. Patient does not have any recent illness and a negative troponin so I doubt myocarditis, patient is without infectious symptoms with a clear chest x-ray I doubt pneumonia. Multiple causes of chest pain considered including [place], PE, aortic dissection, and pleurisy. Patient with epigastric pain and a 4 mm polyp in her gallbladder, her liver enzymes were mildly elevated, but stable compared with prior. She incidentally also had renal cyst on the right kidney, these were also stable compared with the prior CT. Discussed taking Pepto-Bismol or Tums the next time she experiences these symptoms if she does to see if that helps, patient expresses that she has a history of GERD but she felt like this was different today. Patient reports no radiation, no diaphoresis, no provocation with exertion, and no vomiting. Discussed cautious return to the emergency department precautions. Patient understands to follow-up with her primary care provider or return to the emergency department if she experiences the symptoms again. <Bradley Gaviria, DO - Last Filed: 07/27/21 19:22> Lab Data Labs: Lab Results 07/20/21 07/20/21 07/20/21 Range/Units 12:03 12:03 12:05 WBC 7.4 (4.5-11.0) X10^3/uL RBC 4.99 (4.0-5.2) X10^6/uL Hgb 14.8 (12.0-16.0) g/dL Hct 43.9 (36-46) % MCV 87.9 (80-100) fL MCH 29.6 (26-34) PG MCHC 33.7 (30-36) % RDW 13.4 (11.6-14.8) % Plt Count 317 (150-400) X10^3/uL Neut % (Auto) 71.8 (50-75) % Lymph % (Auto) 20.5 L (25-40) % Cooper % (Auto) 4.5 (3-14) % Eos % (Auto) 2.4 (2-4) % Baso % (Auto) 0.8 (0-2) % Neut # (Auto) 5300 (4265-2213) /uL Lymph # (Auto) 1500 (5954-1006) /uL Cooper # (Auto) 300 (0-900) /uL Eos # (Auto) 200 (0-450) /uL Baso # (Auto) 100 (0-100) /uL Sodium 137 (137-145) mmol/L Potassium 3.8 (3.4-5.1) mmol/L Chloride 100 (98-107) mmol/L Carbon Dioxide 32 (22-32) mmol/L BUN 14 (7-17) mg/dL Creatinine 0.83 (0.52-1.04) mg/dL Estimated GFR > 60.0 (>60) mL/min BUN/Creatinine Ratio 16.9 (6-22) Glucose 94 (80-110) mg/dL Calcium 10.0 (8.4-10.2) mg/dL Magnesium 2.0 (1.6-2.3) mg/dL Total Bilirubin 0.7 (0.2-1.3) mg/dL AST 37 H (14-36) IU/L ALT 41 H (<35) IU/L Alkaline Phosphatase 147 H (38-126) U/L Total Creatine Kinase 178 H (30-135) U/L CK-MB (CK-2) 1.87 (<2.37) ng/mL CK-MB (CK-2) Rel Index 1.1 L (1.5-5.0) % Troponin I < 0.012 (0.01-0.034) ng/mL Total Protein 8.8 H (6.3-8.2) g/dL Albumin 4.9 (3.5-5.0) g/dL Globulin 3.9 (1.7-4.1) g/dL Albumin/Globulin Ratio 1.3 (1.0-2.8) Lipase 55 (23-300) U/L TSH 1.82 (0.47-4.68) uIU/mL SARS-CoV-2 (PCR) (Negative) 07/20/21 Range/Units 14:20 WBC (4.5-11.0) X10^3/uL RBC (4.0-5.2) X10^6/uL Hgb (12.0-16.0) g/dL Hct (36-46) % MCV (80-100) fL MCH (26-34) PG MCHC (30-36) % RDW (11.6-14.8) % Plt Count (150-400) X10^3/uL Neut % (Auto) (50-75) % Lymph % (Auto) (25-40) % Cooper % (Auto) (3-14) % Eos % (Auto) (2-4) % Baso % (Auto) (0-2) % Neut # (Auto) (0403-6564) /uL Lymph # (Auto) (0278-0431) /uL Cooper # (Auto) (0-900) /uL Eos # (Auto) (0-450) /uL Baso # (Auto) (0-100) /uL Sodium (137-145) mmol/L Potassium (3.4-5.1) mmol/L Chloride (98-107) mmol/L Carbon Dioxide (22-32) mmol/L BUN (7-17) mg/dL Creatinine (0.52-1.04) mg/dL Estimated GFR (>60) mL/min BUN/Creatinine Ratio (6-22) Glucose (80-110) mg/dL Calcium (8.4-10.2) mg/dL Magnesium (1.6-2.3) mg/dL Total Bilirubin (0.2-1.3) mg/dL AST (14-36) IU/L ALT (<35) IU/L Alkaline Phosphatase (38-126) U/L Total Creatine Kinase (30-135) U/L CK-MB (CK-2) (<2.37) ng/mL CK-MB (CK-2) Rel Index (1.5-5.0) % Troponin I (0.01-0.034) ng/mL Total Protein (6.3-8.2) g/dL Albumin (3.5-5.0) g/dL Globulin (1.7-4.1) g/dL Albumin/Globulin Ratio (1.0-2.8) Lipase (23-300) U/L TSH (0.47-4.68) uIU/mL SARS-CoV-2 (PCR) Negative (Negative) Discharge Plan Departure Patient Disposition: Home Clinical Impression: Gallbladder polyp, Renal cyst, Epigastric abdominal pain Instructions: DI for Gastroesophageal Reflux Disease (GERD), DI for Epigastric Pain Activity Restrictions/Additional Instructions: *You have been diagnosed with epigastric pain which is unclear in etiology. Your liver enzymes are elevated but they are stable compared with prior levels. This does not appear to be cardiac in nature. Your workup is reassuring that this is not a dangerous cause for your symptoms. It most certainly could be a viral syndrome, and if so, please get enough rest, use Tylenol as needed for your symptoms, stay hydrated, and hope that your COVID test is negative. Thank you for trusting us with your care, I have sent your chart over to Dr. Ricks so she can follow up with you. Please make an appointment with her for follow-up in the next week. *What to do: *Please continue to take your regular medications as directed. [ ] New medication prescriptions sent to your pharmacy: [ ] [ ] New medication written as a paper prescription [ x] No new medications given *Please follow up with your primary care provider in 2-3 days, call for an appointment. Let them know you were seen in the Emergency Department and that we ask that you be seen in follow up. We will electronically transmit a record of today's note if your PCP is in our system *If you do not have a primary care provider please contact the [facility] Resource line at [phone]. They will ask some questions about your medical history and help get you set up with a doctor in the community. *Return to Emergency Department if you should have any new, worsening or concerning symptoms, such as [fever greater than 101F, chills, worsening pain, persistent vomiting or other bothersome symptoms] Prescriptions: No Action meloxicam [Mobic] 7.5 mg tablet 7.5 mg PO BID PRN (Reason: pain) Qty: 14 0RF ondansetron 4 mg tablet,disintegrating 4 mg PO Q6H PRN (Reason: nausea and vomiting) Qty: 5 0RF Referrals: Bridgette Ricks, [Primary Care Provider] - Tremayne Bolton MD [Physician] - 10-14 days (for gallbladder polyp, if worsening) <Bradley Gaviria DO - Last Filed: 07/27/21 19:22> Sign Out Provider Sign Out Attestation: I was immediately available in the department for consultation. This documentation has been reviewed and I agree with assessment and plan. Supervised by Bradley Gaviria DO
[2021-07-20 12:22] LABS: Add Manual Diff / Slide Review NO; Basophils Absolute Auto 100 /uL (0-100); Basophils Percent Auto 0.8 % (0-2); Eosinophils Absolute Auto 200 /uL (0-450); Eosinophils Percent Auto 2.4 % (2-4); Hematocrit 43.9 % (36-46); Hemoglobin 14.8 g/dL (12.0-16.0); Lymphocytes Absolute Auto 1500 /uL (1100-4500); Lymphocytes Percent Auto 20.5 % (25-40); Mean Corpuscular HGB Conc 33.7 % (30-36); Mean Corpuscular Hemoglobin 29.6 PG (26-34); Mean Corpuscular Volume 87.9 fL (80-100); Monocytes Absolute Auto 300 /uL (0-900); Monocytes Percent Auto 4.5 % (3-14); Neutrophils Absolute Auto 5300 /uL (1500-7000); Neutrophils Percent Auto 71.8 % (50-75); Platelet Count 317 X10^3/uL (150-400); Red Blood Cell Count 4.99 X10^6/uL (4.0-5.2); Red Cell Distribution Width 13.4 % (11.6-14.8); White Blood Cell Count 7.4 X10^3/uL (4.5-11.0)
--- NOTE | 2021-07-20 12:29 | DI.US.S_ITS ---
PROCEDURE: US ABDOMEN LIMITED INDICATIONS: EPIGASTRIC PAIN AND NAUSEA. PAIN RELIEVED WITH BELCHING. TECHNIQUE: Real-time scanning was performed of the abdominal and retroperitoneal organs, with image documentation. COMPARISON: [facility], , ABDOMEN LIMITED, 08/01/2017, 10:08. FINDINGS: Liver: Liver is normal in size and homogeneous in echotexture. Gallbladder: Sonolucent without evidence cholelithiasis, gallbladder wall thickening or pericholecystic fluid. No sonographic Luu sign. Small gallbladder polyp measures 4 mm Biliary ducts: Intrahepatic bile ducts are non-dilated. Extrahepatic bile duct caliber measures 6.6 mm. Normal is 6-7 mm or less in diameter, or 10 mm or less post-cholecystectomy. Right kidney: Multiple right renal simple cysts. Largest measures 12.1 x 6.8 x 6.7 cm. Right renal echotexture, size and cortical thickness within normal limits. No hydronephrosis. IMPRESSION: 1. Small gallbladder polyp measures less than 4 mm. 2. Simple right renal cysts measure up to 12 cm Approved by: Aden Rossi M.D. on 07/20/2021 at 12:42
[2021-07-20 12:33] LABS: Alanine Aminotransferase 41 IU/L (<35); Albumin 4.9 g/dL (3.5-5.0); Albumin Globulin Ratio 1.3 (1.0-2.8); Alkaline Phosphatase 147 U/L (38-126); Aspartate Aminotransferase 37 IU/L (14-36); BUN Creatinine Ratio 16.9 (6-22); Bilirubin Total 0.7 mg/dL (0.2-1.3); Blood Urea Nitrogen 14 mg/dL (7-17); Carbon Dioxide 32 mmol/L (22-32); Chloride 100 mmol/L (98-107); Creatine Kinase 178 U/L (30-135); Estimated Glomerular Filt Rate > 60.0 mL/min (>60); Globulin 3.9 g/dL (1.7-4.1); Glucose 94 mg/dL (80-110); HEMOLYSIS < 15 (0-50); Lipase 55 U/L (23-300); Potassium 3.8 mmol/L (3.4-5.1); Sodium 137 mmol/L (137-145); Total Protein 8.8 g/dL (6.3-8.2)
--- NOTE | 2021-07-20 12:43 | PC.NURSE ---
no chest pain, reports heart palpiations from 7-9am today that have resolved. As well as abdominal discomfort.
[2021-07-20 12:44] VITALS: PULSE 61; RESP 17; O2SAT 100
[2021-07-20 12:45] LABS: Troponin I < 0.012 ng/mL (0.01-0.034)
[2021-07-20 12:49] LABS: CKMB % Relative Index 1.1 % (1.5-5.0); Creatine Kinase MB 1.87 ng/mL (<2.37)
[2021-07-20 13:00] VITALS: BP 196/97; PULSE 63; RESP 19; O2SAT 99
[2021-07-20 13:30] VITALS: BP 179/98; PULSE 67; RESP 19; O2SAT 98
[2021-07-20 13:52] LABS: Thyroid Stimulating Hormone 1.82 uIU/mL (0.47-4.68)
[2021-07-20 14:00] VITALS: BP 162/88; PULSE 70; RESP 12; O2SAT 98
[2021-07-20 14:52] LABS: COVID19 -Nasal RAPID Negative (Negative)
== END 2021-07-20 14:36 | disposition home or self-care (01) ==
PROVIDERS: Emergency Medicine; Emergency Provider Nurse Practitioner Critical Care Medicine; PCP Family Medicine
DX: R10.13 Epigastric pain (principal); R00.1 Bradycardia, unspecified; K82.4 Cholesterolosis of gallbladder; N28.1 Cyst of kidney, acquired; Z20.822 Contact with and (suspected) exposure to COVID-19
CPT/HCPCS: 36415; 71045; 76705; 80053; 82550; 82553; 83690; 83735; 84443; 84484; 85025; 87635; 93005; 93010; 99283; 99284; C9803

== ENCOUNTER → 2023-12-13 15:22 | Outpatient (CLI) | payer OTHER, SELFPAY ==
--- NOTE | 2023-12-13 15:24 | DI.MRI.S_ITS ---
PROCEDURE: MR LUMBAR SPINE WO CON INDICATIONS: COMPRESSION FRACTURE LUMBAR TECHNIQUE: Noncontrast sagittal T1 spin echo and T2 fast echo, sagittal STIR, and T2 fast spin echo through the lumbar spine. In cases with scoliosis, additional coronal T2 fast spin echo may be performed. COMPARISON: [facility], MR, MR THORACIC SPINE WITHOUT CONTRAST, 11/15/2023, 19:25. [facility], CR, XR LUMBAR SPINE 2 OR 3 VIEWS, 10/31/2023, 9:02. FINDINGS: Image quality: Excellent. Alignment and Curvature: There is normal bony alignment. Bone Marrow: Height loss involving multiple lumbar vertebral bodies, mild at L1, moderate L2, mild L3 with mild edema at the inferior endplate, suggestive of subacute etiology. Mild height loss of L4 and moderate of L5. Within the thoracic spine, there is mild compression deformity of T12 with associated edema which is new compared to prior. Moderate compression deformity of T11 with associated edema is progressed compared to prior. Spinal Cord: Conus medullaris terminates at the L1 level. Visualized cord demonstrates normal signal and size. Paraspinous Soft Tissues: No paravertebral masses. Multiple bilateral simple appearing renal cysts. Small T2 hypointense focus at the inferior pole left kidney measuring 7 millimeters. T12-L1: Normal appearance. L1-L2: Normal appearance. L2-L3: Disc desiccation. Mild facet arthropathy. No central canal stenosis. Mild bilateral neural foraminal stenosis. L3-L4: Mild facet arthropathy. No central canal or neural foraminal stenosis. L4-L5: Disc desiccation. Minimal disc bulge. Facet arthropathy. No central canal or neural foraminal stenosis. L5-S1: Facet arthropathy. No central canal or neural foraminal stenosis. IMPRESSION: 1. Multilevel compression deformities throughout the lumbar spine as described above. Edema within the L3 vertebral body suggestive of acute or subacute etiology. 2. New mild compression deformity of the inferior endplate of T12 and progression of moderate T11 compression deformity when compared to prior MRI 11/16/2023. 3. Mild multilevel degenerative changes of the lumbar spine as described above. 4. At the inferior pole the left kidney, there is a small 7 millimeter T2 hypointense focus. Recommend renal ultrasound for further evaluation. Dictated by: Murray Botello M.D. on 12/13/2023 at 16:52 Approved by: Murray Botello M.D. on 12/13/2023 at 16:57
== END ==
LOC: MRI 15:23
PROVIDERS: PCP Family Medicine; Referring Provider Orthopaedic Surgery Orthopaedic Surgery of the Spine; Visit Provider Orthopaedic Surgery Orthopaedic Surgery of the Spine
DX: S22.080A Wedge compression fracture of T11-T12 vertebra, initial encounter for closed fracture (principal); M43.8X6 Other specified deforming dorsopathies, lumbar region; M47.816 Spondylosis without myelopathy or radiculopathy, lumbar region; M47.817 Spondylosis without myelopathy or radiculopathy, lumbosacral region
CPT/HCPCS: 72148